=== PATIENT | male | born 1985 | race Two or more races ===

== ENCOUNTER 2017-01-29 23:58 | Emergency (ER) | payer SELFPAY ==
[~2017-01-29] VITALS: Ht 170.2 cm; Wt 54.4 kg
[2017-01-30 04:35] VITALS: BP 111/73
== END 2017-01-30 04:35 | disposition home or self-care (01) ==
LOC: ER 01-30
DX: R51 Headache (principal); R07.9 Chest pain, unspecified; R10.9 Unspecified abdominal pain; V43.52XA Car driver injured in collision with other type car in traffic accident, initial encounter; Y93.89 Activity, other specified; Y92.89 Other specified places as the place of occurrence of the external cause; Y99.8 Other external cause status
CPT/HCPCS: 70450; 74176